=== PATIENT | female | born 1985 | race Caucasian/White ===

== ENCOUNTER → 2019-12-06 11:00 | Outpatient (CLI) | payer OTHER, MEDICAID, SELFPAY ==
[2019-12-06 12:23] LABS: INR 1.7 (0.9-1.3); Prothrombin Time 19.2 SECONDS (10.1-12.7)
== END ==
PROVIDERS: PCP Pharmacist; Referring Provider Pharmacist; Visit Provider Pharmacist
DX: D68.59 Other primary thrombophilia (principal); D68.51 Activated protein C resistance; Z86.718 Personal history of other venous thrombosis and embolism
CPT/HCPCS: 36415; 85610

== ENCOUNTER → 2019-12-20 10:30 | Outpatient (CLI) | payer OTHER, MEDICAID, SELFPAY ==
[2019-12-20 11:33] LABS: INR 3.2 (0.9-1.3)
== END ==
PROVIDERS: PCP Pharmacist; Referring Provider Pharmacist; Visit Provider Pharmacist
DX: D68.59 Other primary thrombophilia (principal); D68.51 Activated protein C resistance; Z86.718 Personal history of other venous thrombosis and embolism
CPT/HCPCS: 36415; 85610

== ENCOUNTER → 2020-04-22 11:47 | Outpatient (CLI) | payer OTHER, SELFPAY ==
--- NOTE | 2020-04-22 11:49 | DI.RAD.S_ITS ---
PROCEDURE: XR SACROILIAC JOINT MIN 3V INDICATIONS: bilateral SIJ pain and TTP x 5 years R>L TECHNIQUE: 3 views of the sacroiliac joints were acquired. COMPARISON: None. FINDINGS: Bones: No bony erosions or ankylosis. No suspicious bony lesions. No fractures. Soft tissues: Overlying bowel gas pattern is normal. No suspicious soft tissue densities. IMPRESSION: Bilateral sacroiliac joints without acute radiographic abnormalities. No evidence for significant degenerative change or inflammatory arthropathy. Dictated by: Otis Griffith M.D. on 04/22/2020 at 17:59 Approved by: Otis Grififth M.D. on 04/22/2020 at 18:00
[2020-04-22 13:38] LABS: C-Reactive Protein Quant < 0.5 mg/dL (<1.0)
[2020-04-22 13:54] LABS: Erythrocyte Sedimentation Rate 6 MM/HR (0-20)
[2020-05-01 22:49] LABS: HLA B27 Negative (.)
== END ==
PROVIDERS: PCP Registered Nurse Diabetes Educator; Referring Provider Registered Nurse Diabetes Educator; Visit Provider Registered Nurse Diabetes Educator
DX: M46.1 Sacroiliitis, not elsewhere classified (principal); M53.3 Sacrococcygeal disorders, not elsewhere classified
CPT/HCPCS: 36415; 72202; 81374; 85651; 86140

== ENCOUNTER → 2020-12-12 11:25 | Outpatient (CLI) | payer OTHER, SELFPAY ==
[2020-12-12] MEDS: COVID-19 VACC #1, MRNA(MOD) 100 MCG/0.5 ML VIAL IM (11:33)
== END ==
PROVIDERS: PCP Registered Nurse Diabetes Educator; Visit Provider Internal Medicine
DX: Z23 Encounter for immunization (principal)
CPT/HCPCS: 0011A; 91301

== ENCOUNTER → 2021-01-10 13:26 | Outpatient (CLI) | payer OTHER, SELFPAY ==
[2021-01-10] MEDS: COVID-19 VACC #2, MRNA(MOD) 100 MCG/0.5 ML VIAL IM (13:32)
== END ==
PROVIDERS: PCP Registered Nurse Diabetes Educator; Visit Provider Internal Medicine
DX: Z23 Encounter for immunization (principal)
CPT/HCPCS: 0012A; 91301

== ENCOUNTER → 2022-11-16 13:25 | Outpatient (CLI) | payer OTHER, SELFPAY ==
--- NOTE | 2022-11-16 13:29 | DI.RAD.S_ITS ---
PROCEDURE: XR RIBS RT MIN 3V W CXR 1V INDICATIONS: LATERAL RIGHT RIB PAIN AFTER COUGH X 6 WEEKS TECHNIQUE: 2 views of the right ribs were acquired, along with a single view chest. COMPARISON: None. FINDINGS: Surgical changes and devices: None. Bones and chest wall: No fractures or dislocations. No suspicious bony lesions. Overlying soft tissues appear unremarkable. Lungs and pleura: No pleural effusions or pneumothorax. Lungs appear clear. Mediastinum: Mediastinal contours appear normal. Heart size is normal. IMPRESSION: No displaced right rib fractures. Dictated by: David Preston [facility] Interpreted: Shemar Coppola MD on 11/16/2022 at 13:50 Transcribed by: ROSA on 11/16/2022 at 13:51 Approved by: Ashutosh Coppola M.D. on 11/16/2022 at 16:50
== END ==
PROVIDERS: PCP Registered Nurse Diabetes Educator; Referring Provider Family Medicine; Visit Provider Family Medicine
DX: R07.82 Intercostal pain (principal); R05.9 Cough, unspecified
CPT/HCPCS: 71101